=== PATIENT | female | born 1990 | race Caucasian/White ===

== ENCOUNTER 2019-04-24 10:55 | Emergency (ER) | payer SELFPAY ==
[~2019-04-24] VITALS: Ht 167.6 cm; Wt 49.9 kg
--- NOTE | 2019-04-24 11:02 | NUR ---
ED Nurse Note: pt presents to ED c/o bilat eye pain from leaving her contacts in over night. pt states that she has been putting in OTC eye drops to try and flush them out/help with the pain and discomfort but she has had no relief. she also reports photosensitvity of both eyes
[2019-04-24] MEDS ORDERED: NKM (11:03)
[2019-04-24 11:15] VITALS: BP 105/75
[2019-04-24] MEDS ORDERED: Fluorescein Strips BOTH EYES ONE (11:30)
[2019-04-24] MEDS ORDERED: Tetracaine 0.5% Opth 4ml Soln RIGHT EYE ONE (11:30)
[2019-04-24] MEDS ORDERED: Tetracaine 0.5% Opth 4ml Soln LEFT EYE ONE (11:30)
--- NOTE | 2019-04-24 11:50 | NUR ---
ED Nurse Note: pt was able to tolerate bilat eye irrigation well but MD was unable to remove contacts. ERMD will give pt referral for optometry for pt to f/u with.
[2019-04-24 12:03] VITALS: BP 121/80
--- NOTE | 2019-04-24 12:03 | NUR ---
ER DISCHARGE NOTE: Patient is cleared to be discharged per ERMD, pt is aox4, on room air, with stable vital signs. pt was given dc instructions and a referral for an opthamologist, pt id band removed without complications. pt is able to ambulate with steady gait. pt took all belongings.
--- NOTE | 2019-04-24 12:45 | Emergency Room Report ---
History of Present Illness General Chief Complaint: Eye Problems Source: Patient Present Illness HPI Patient presents emergency department today complaining of bilateral eye irritation. Patient states that she feels that contact lenses are still in her eye. She states that she was at one day contact lenses yesterday. She came back feel irritation in her eyes she tried to remove it but was unable to do so. She try to wash it with water. However this was late at night pharmacy was closed. Therefore she went to bed. She woke up this morning still feels like something is in her eye is requesting removal of her contact lenses. Denies any fever nausea vomiting diarrhea chills. Denies any other injury. No other complaints are noted. Symptoms noted to mild to moderate. No other modifying factors. No other associated signs and symptoms. No other complaints were noted. Allergies: Coded Allergies: No Known Allergies (Unverified , 04/24/19) Patient History Past Medical History: none Past Surgical History: none Pertinent Family History: none Social History: Denies: smoking, alcohol use, drug use Last Menstrual Period: 04/24/19 Now: No Reviewed Nursing Documentation: PMH: Agreed; PSxH: Agreed Nursing Documentation-PMH Past Medical History: No Stated History Review of Systems All Other Systems: negative except mentioned in HPI Physical Exam Vital Signs Date Time Temp Pulse Resp B/P (MAP) Pulse Ox O2 Delivery O2 Flow Rate FiO2 04/24/19 11:00 98.2 83 16 105/75 (85) 100 Room Air Sp02 EP Interpretation: reviewed, normal General Appearance: normal inspection, well appearing, no apparent distress, alert Head: atraumatic Eyes: bilateral eye PERRL, bilateral eye other - Fluoroscen in both eyes. No evidence of uptake. Could not visualize foreign body. ENT: normal ENT inspection, hearing grossly normal, normal voice Neck: normal inspection, full range of motion, supple, no bony tend Respiratory: normal inspection, lungs clear, normal breath sounds, no respiratory distress, no retraction, no wheezing Cardiovascular #1: regular rate, rhythm, no edema Gastrointestinal: normal inspection, normal bowel sounds, non tender, soft, no guarding, no hernia Genitourinary: no CVA tenderness Musculoskeletal: normal inspection, back normal, normal range of motion Neurologic: normal inspection, alert, responsive, speech normal Psychiatric: normal inspection, judgement/insight normal, mood/affect normal Medical Decision Making Diagnostic Impression: Primary Impression: Foreign body in eye ER Course Patient presents emergency department today complaining of foreign body in her eyes. Differential considerations include foreign body, foreign body sensation , corneal abrasion just name a few. Patient's exam did not show any evidence of any foreign body. The area was irrigated with normal saline. Forcing stain was applied there was no uptake. I even try to wear sterile gloves and try to remove any foreign body from her eye and I was unable to do so. Because I cannot remove any foreign body or find the foreign body I felt that it was reasonable to get outpatient follow-up. I discussed this case with Dr. Praful Mo who is our assembly and packing supervisor and he agreed to see the patient in office immediately. Therefore patient was referred to the office for further exam and possible removal of the foreign body. Patient was advised to return to emergency room for any worsening symptoms and as needed. Last Vital Signs Date Time Temp Pulse Resp B/P (MAP) Pulse Ox O2 Delivery O2 Flow Rate FiO2 04/24/19 12:03 98.4 74 121/80 98 Room Air 04/24/19 11:15 16 Status: improved Disposition: HOME, SELF-CARE Condition: Stable Referrals: Gilson Bosch MD Patient Instructions: Eye Foreign Body Ilia Arce MD Apr 24, 2019 12:45
== END 2019-04-24 12:03 | disposition home or self-care (01) ==
LOC: EMR 11:21
DX: H57.13 Ocular pain, bilateral (principal)
CPT/HCPCS: 99283